=== PATIENT | female | born 1995 | race Hispanic/Latino ===

== ENCOUNTER 2018-01-16 18:09 | Emergency (ER) | payer OTHER ==
[2018-01-16] MEDS ORDERED: Lidocaine 1% 20 ML MDV ONE (18:26)
[2018-01-16] MEDS ORDERED: Adacel (T-DAP) 0.5 ML VIAL ONE (18:40)
[2018-01-16] MEDS ORDERED: Bacitracin Zinc 1 Packet ONE (18:48)
== END 2018-01-16 19:45 | disposition home or self-care (01) ==
LOC: NAV ERS 18:09
DX: S01.112A Laceration without foreign body of left eyelid and periocular area, initial encounter (principal); V89.2XXA Person injured in unspecified motor-vehicle accident, traffic, initial encounter
CPT/HCPCS: 12013; 90471; 90715; J2001